=== PATIENT | male | born 1950 | race Caucasian/White ===

== ENCOUNTER 2018-06-21 10:15 | Emergency (ER) | payer MEDICARE ==
[2018-06-21] MEDS ORDERED: SODIUM CHLORIDE 0.9% 500 ML 500 ML IV STA (10:53)
[2018-06-21 11:57] LABS: Basophils # (A) 0.1 k/uL (0-0.2); Basophils % (A) 1 %; Eosinophils # (A) 0.2 k/uL (0-0.7); Eosinophils % (A) 3 %; HCT 47.6 % (39.0-53.0); HGB 15.4 gm/dL (13.0-17.5); Lymphocytes # (A) 1.3 k/uL (1.0-4.8); Lymphocytes % (A) 15 %; MCH 28.4 pg (25.0-35.0); MCHC 32.3 g/dL (31.0-37.0); MCV 87.9 fL (80.0-100.0); Mean Platelet Volume 6.4; Monocytes # (A) 0.5 k/uL (0-1.0); Monocytes % (A) 6 %; Neutrophils # (A) 6.3 k/uL (1.3-7.7); Neutrophils % (A) 74 %; Platelet Count 598 k/uL (150-450); RBC 5.41 m/uL (4.30-5.90); RDW 13.7 % (11.5-15.5); WBC 8.5 k/uL (3.8-10.6)
[2018-06-21 12:08] LABS: INR 0.9 (<1.2); Partial Thromboplastin Time 24.5 sec (22.0-30.0); Prothrombin Time 10.2 sec (9.0-12.0)
[2018-06-21 12:11] LABS: ALT 40 U/L (21-72); AST 25 U/L (17-59); Albumin 4.2 g/dL (3.5-5.0); Alkaline Phosphatase 69 U/L (38-126); Anion Gap 9 mmol/L; Blood Urea Nitrogen 24 mg/dL (9-20); Calcium 10.3 mg/dL (8.4-10.2); Carbon Dioxide 31 mmol/L (22-30); Chloride 99 mmol/L (98-107); Glucose 122 mg/dL (74-99); Magnesium 1.8 mg/dL (1.6-2.3); Potassium 3.9 mmol/L (3.5-5.1); Sodium 139 mmol/L (137-145); Total Bilirubin 0.7 mg/dL (0.2-1.3); Total Protein 7.3 g/dL (6.3-8.2)
--- NOTE | 2018-06-21 12:16 | XR ---
EXAMINATION TYPE: XR chest 2V DATE OF EXAM: 06/21/2018 COMPARISON: 10/03/2014 HISTORY: Dysrhythmia and chest pain TECHNIQUE: Frontal and lateral views of the chest are obtained. FINDINGS: There is no focal air space opacity, pleural effusion, or pneumothorax seen. The cardiac silhouette size is upper limits of normal. The osseous structures are intact. Mild multilevel degener ative changes of the thoracic spine are noted. IMPRESSION: No acute cardiopulmonary process.
[2018-06-21 12:52] VITALS: BP 139/77
--- NOTE | 2018-06-21 12:58 | ED ---
Arrhythmia/Palpitations HPI - General Chief Complaint: Arrhythmia/Palpitations Stated Complaint: chest pain Time Seen by Provider: 06/21/18 10:53 Source: patient, RN notes reviewed Mode of arrival: ambulatory Limitations: no limitations - History of Present Illness Initial Comments: This a 67-year-old male presents emergency Department chief complaint of palpitations. Patient states she's been having symptoms every morning for a while. Patient states that he was just concerned about them today and felt that he come emergency department. Patient states that he is scheduled to see his nurse executive tomorrow for surgical clearance. He denies any chest pain. Patient states that he has no shortness of breath. Patient states he only feels it in the morning he states that it usually is when he "dreaming". He states he then wakes up and states that he feels like his heart skips a beat every once a while. Again he states there is no chest pain. Patient was seen by his PCP and had normal EKG but was sent to cardiology only for surgical clearance. Patient does have a history of A. fib. Patient has a history of left bundle-branch block - Related Data Home Medications Medication Instructions Recorded Confirmed Colchicine [Colcrys] 0.6 mg PO BID 10/03/14 06/21/18 Isosorbide Mononitrate 20 mg PO BID 10/03/14 06/21/18 Metoprolol/Hydrochlorothiazide 1 tab PO BID 10/03/14 06/21/18 [Lopressor Hct 50-25 Tablet] amLODIPine [Norvasc] 10 mg PO DAILY 10/03/14 06/21/18 Aspirin 325 mg PO DAILY 10/09/14 06/21/18 Clopidogrel [Plavix] 75 mg PO DAILY 10/09/14 06/21/18 ALPRAZolam [Xanax] 1 mg PO Q8HR PRN 11/03/14 06/21/18 Docusate [Colace] 100 mg PO DAILY PRN 11/03/14 06/21/18 Allergies Allergy/AdvReac Type Severity Reaction Status Date / Time epinephrine Allergy Severe Rapid Verified 06/21/18 12:36 Heart Rate Penicillins Allergy Verified 06/21/18 12:36 Review of Systems ROS Statement: Those systems with pertinent positive or pertinent negative responses have been documented in the HPI. ROS Other: All systems not noted in ROS Statement are negative. Past Medical History Past Medical History: Hypertension Additional Past Medical History / Comment(s): 11/03/14 Pt presented to [facility] ER with drainage from his 10/10/14 surgery-R inguinal herniorrhaphy with mesh. Other hx: R inguinal hernia for approximately 12 yrs-with recent surgical repair, irregular heart beat especially with stress, gout, ocular migraines, permanent fx of L wrist. History of Any Multi-Drug Resistant Organisms: None Reported Past Surgical History: Hernia Repair, Orthopedic Surgery Additional Past Surgical History / Comment(s): 10/10/14 R inguinal herniorraphy with mesh. Pt did have echo 10/03/14 which showed moderate LVH, L ventricular systolic function low/normal with EF 50-55%, mild mitral and tricuspid regurg. Additional HX: L arm plate and pins, R knee surgery-pt unsure what type, L foot tendon repair, R achilles tendon severed and repaired, large number of facial lacerations with suture repair. Past Anesthesia/Blood Transfusion Reactions: No Reported Reaction Past Psychological History: Anxiety Smoking Status: Former smoker Past Alcohol Use History: Occasional Past Drug Use History: None Reported - Past Family History Father Family Medical History: No Reported History Mother Additional Family Medical History / Comment(s): Mother was an alcoholic and from alcoholism at age 40 per pt. General Exam General appearance: alert, in no apparent distress Head exam: Present: atraumatic, normocephalic, normal inspection Eye exam: Present: normal appearance, PERRL, EOMI. Absent: scleral icterus, conjunctival injection, periorbital swelling ENT exam: Present: normal exam, normal oropharynx, mucous membranes dry, mucous membranes moist, TM's normal bilaterally Neck exam: Present: normal inspection, full ROM. Absent: tenderness, meningismus, lymphadenopathy Respiratory exam: Present: normal lung sounds bilaterally. Absent: respiratory distress, wheezes, rales, rhonchi, stridor Cardiovascular Exam: Present: normal rhythm, bradycardia, normal heart sounds. Absent: systolic murmur, diastolic murmur, rubs, gallop, clicks GI/Abdominal exam: Present: soft, normal bowel sounds. Absent: distended, tende rness, guarding, rebound, rigid Course Vital Signs 06/21/18 06/21/18 06/21/18 10:24 12:00 12:51 Temperature 98.2 F Pulse Rate 57 L 53 L 52 L Respiratory 18 18 16 Rate Blood Pressure 149/75 144/74 139/77 O2 Sat by Pulse 97 98 98 Oximetry EKG Findings - EKG Comments: EKG Findings:: EKG performed at 11:21 sinus bradycardia with first-degree block, left axis deviation and left bundle, rate of 55. VT interval 328, QRS 202 QT/QTc 528/505 no acute changes from prior EKG Medical Decision Making - Medical Decision Making 67-year-old male presented for palpitations. Patient had lab work, EKG, chest x-ray. There are no acute findings. Patient has appointment with cardiology tomorrow and will be discharged. Return parameters were discussed. - Lab Data Result diagrams: 06/21/18 11:34 06/21/18 11:34 Lab Results 06/21/18 06/21/18 06/21/18 Range/Units 11:34 11:34 11:34 WBC 8.5 (3.8-10.6) k/uL RBC 5.41 (4.30-5.90) m/uL Hgb 15.4 (13.0-17.5) gm/dL Hct 47.6 (39.0-53.0) % MCV 87.9 (80.0-100.0) fL MCH 28.4 (25.0-35.0) pg MCHC 32.3 (31.0-37.0) g/dL RDW 13.7 (11.5-15.5) % Plt Count 598 H (150-450) k/uL Neutrophils % 74 % Lymphocytes % 15 % Monocytes % 6 % Eosinophils % 3 % Basophils % 1 % Neutrophils # 6.3 (1.3-7.7) k/uL Lymphocytes # 1.3 (1.0-4.8) k/uL Monocytes # 0.5 (0-1.0) k/uL Eosinophils # 0.2 (0-0.7) k/uL Basophils # 0.1 (0-0.2) k/uL PT 10.2 (9.0-12.0) sec INR 0.9 (<1.2) APTT 24.5 (22.0-30.0) sec Sodium 139 (137-145) mmol/L Potassium 3.9 (3.5-5.1) mmol/L Chloride 99 (98-107) mmol/L Carbon Dioxide 31 H (22-30) mmol/L Anion Gap 9 mmol/L BUN 24 H (9-20) mg/dL Creatinine 0.92 (0.66-1.25) mg/dL Est GFR (CKD-EPI)AfAm >90 (>60 ml/min/1.73 sqM) Est GFR (CKD-EPI)NonAf 85 (>60 ml/min/1.73 sqM) Glucose 122 H (74-99) mg/dL Calcium 10.3 H (8.4-10.2) mg/dL Magnesium 1.8 (1.6-2.3) mg/dL Total Bilirubin 0.7 (0.2-1.3) mg/dL AST 25 (17-59) U/L ALT 40 (21-72) U/L Alkaline Phosphatase 69 (38-126) U/L Troponin I (0.000-0.034) ng/mL Total Protein 7.3 (6.3-8.2) g/dL Albumin 4.2 (3.5-5.0) g/dL 06/21/18 Range/Units 11:34 WBC (3.8-10.6) k/uL RBC (4.30-5.90) m/uL Hgb (13.0-17.5) gm/dL Hct (39.0-53.0) % MCV (80.0-100.0) fL MCH (25.0-35.0) pg MCHC (31.0-37.0) g/dL RDW (11.5-15.5) % Plt Count (150-450) k/uL Neutrophils % % Lymphocytes % % Monocytes % % Eosinophils % % Basophils % % Neutrophils # (1.3-7.7) k/uL Lymphocytes # (1.0-4.8) k/uL Monocytes # (0-1.0) k/uL Eosinophils # (0-0.7) k/uL Basophils # (0-0.2) k/uL PT (9.0-12.0) sec INR (<1.2) APTT (22.0-30.0) sec Sodium (137-145) mmol/L Potassium (3.5-5.1) mmol/L Chloride (98-107) mmol/L Carbon Dioxide (22-30) mmol/L Anion Gap mmol/L BUN (9-20) mg/dL Creatinine (0.66-1.25) mg/dL Est GFR (CKD-EPI)AfAm (>60 ml/min/1.73 sqM) Est GFR (CKD-EPI)NonAf (>60 ml/min/1.73 sqM) Glucose (74-99) mg/dL Calcium (8.4-10.2) mg/dL Magnesium (1.6-2.3) mg/dL Total Bilirubin (0.2-1.3) mg/dL AST (17-59) U/L ALT (21-72) U/L Alkaline Phosphatase (38-126) U/L Troponin I <0.012 (0.000-0.034) ng/mL Total Protein (6.3-8.2) g/dL Albumin (3.5-5.0) g/dL Disposition Clinical Impression: Palpitations Disposition: HOME SELF-CARE Condition: Stable Instructions (If sedation given, give patient instructions): Heart Palpitations (ED) Additional Instructions: Please return to the Emergency Department if symptoms worsen or any other concerns. Is patient prescribed a controlled substance at d/c from ED?: No Referrals: Olive Reynoso III, MD [Primary Care Provider] - 1-2 days Time of Disposition: 12:57
[2018-06-21 13:12] VITALS: PULSE 55; RESP 18; TEMP 97.8
== END 2018-06-21 13:21 | disposition home or self-care (01) ==
LOC: EC 10:15
DX: R00.2 Palpitations (principal); R00.1 Bradycardia, unspecified; I10 Essential (primary) hypertension; M10.9 Gout, unspecified; I48.91 Unspecified atrial fibrillation; Z87.891 Personal history of nicotine dependence; Z79.02 Long term (current) use of antithrombotics/antiplatelets; Z79.899 Other long term (current) drug therapy; Z79.82 Long term (current) use of aspirin; Z88.0 Allergy status to penicillin; Z88.8 Allergy status to other drugs, medicaments and biological substances; Z87.19 Personal history of other diseases of the digestive system; Z98.890 Other specified postprocedural states
CPT/HCPCS: 36415; 71046; 80053; 83735; 84484; 85025; 85610; 85730; 93005; 99285

== ENCOUNTER → 2023-06-10 | Outpatient (CLI) | payer MEDICARE ==
[2023-06-10 11:46] LABS: African American GFR (CKD) 71 (>60 ml/min/1.73 sqM); Blood Urea Nitrogen 20 mg/dL (9-20); Non-African American GFR(CKD) 61 (>60 ml/min/1.73 sqM)
--- NOTE | 2023-06-10 13:41 | CT ---
EXAMINATION: CT ABDOMEN AND PELVIS WITH IV CONTRAST DATE OF EXAMINATION: 06/10/2023. COMPARISON: 11/04/2014. INDICATION: Lower abdominal pain. PROCEDURE: Axial CT of the abdomen and pelvis was performed with contrast and sagittal and coronal reformatted images were performed. CT dose lowering techniques were used, to include: automated expos ure control, adjustment for patient size, and/or use of iterative reconstruction. FINDINGS: LOWER CHEST : The visualized lung bases are clear. There are no pleural or pericardial effusions. T here are severe coronary artery calcifications. Moderate to significant global cardiomegaly. ABDOMEN: Liver and Biliary system: Normal. Adrenal glands: Normal. Kidneys and ureters: 2.9 cm cyst in the inferior pole of the right kidney. 4.8 cm probable parapelvic cyst within the left kidney. 2.6 cm cyst in the inferior pole the left kidney as well as an addition al cyst within the inferior pole also seen measuring approximately 1.9 cm. Subcentimeter hypodensitie s are otherwise seen that are too small to fully characterize Spleen: Normal. Pancreas: Normal. Gallbladder: Normal. Lymph nodes, Peritoneum and mesentery: There is no mesenteric or retroperitoneal lymphadenopathy. Gastrointestinal tract: There are no dilated loops of bowel or free intraperitoneal air. The appe ndix is not clearly seen with no secondary changes of appendicitis otherwise identified. Aorta/IVC: There is severe vascular calcification throughout the abdominal aorta without evidence o f aneurysmal dilation or dissection. IVC normal. Abdominal wall: Normal. PELVIS: Fluid: There is no free fluid in the pelvis. Lymph Nodes: There is no pelvic or inguinal lymphadenopathy.. Urinary bladder: Normal. BONES: There is a right total hip arthroplasty. 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 Scattered degenerative disc and facet changes are seen throughout the spine. There are no acu te osseous abnormalities. ADDITIONAL SIGNIFICANT FINDINGS: There is a large indirect right inguinal hernia containing fat and small bowel. There is some overlying soft tissue density as well as soft tissue stranding with a sup erimposed infection or cellulitis is not excluded. There is no definitive bowel obstruction noted at this time. There is a small left hydrocele. IMPRESSION: 1. Large indirect right inguinal hernia containing fat and small bowel. No signs of obstruction are s een at this time. There is some overlying stranding and soft tissue density within the subcutaneous t issues of this region as infection or phlegmon would be difficult to exclude. 2. Small left hydrocele. 3. Cardiomegaly with severe coronary artery calcification.
== END | disposition home or self-care (01) ==
LOC: RADCTMAIN 10:50
PROVIDERS: ATTEND Family Medicine
DX: K40.90 Unilateral inguinal hernia, without obstruction or gangrene, not specified as recurrent (principal); N43.3 Hydrocele, unspecified; I51.7 Cardiomegaly; R19.00 Intra-abdominal and pelvic swelling, mass and lump, unspecified site; I25.10 Atherosclerotic heart disease of native coronary artery without angina pectoris
CPT/HCPCS: 82565; 84520; 74177; 36415; Q9967